=== PATIENT | female | born 1980 | race Two or more races ===

== ENCOUNTER 2023-11-23 23:33 | Emergency (ER) | payer OTHER ==
[~2023-11-23] VITALS: Ht 160 cm; Wt 77.1 kg
[2023-11-24] MEDS ORDERED: BACL5TAB PO (01:56)
[2023-11-24] MEDS ORDERED: KETO10TA2 PO (01:56)
[2023-11-24 02:03] VITALS: BP 132/78; TEMP 98; O2SAT 98
== END 2023-11-24 02:04 | disposition home or self-care (01) ==
LOC: ER 23:35
DX: R07.89 Other chest pain (principal); I10 Essential (primary) hypertension; Z79.899 Other long term (current) drug therapy; V49.40XA Driver injured in collision with unspecified motor vehicles in traffic accident, initial encounter; Y93.89 Activity, other specified; Y92.410 Unspecified street and highway as the place of occurrence of the external cause; Y99.8 Other external cause status
CPT/HCPCS: 71045-TC